=== PATIENT | female | born 1945 | race Caucasian/White ===

== ENCOUNTER 2017-10-09 10:21 | Outpatient (CLI) | payer MEDICARE, OTHER ==
--- NOTE | 2017-10-09 11:54 | XRAY Report ---
THREE VIEW BILATERAL FEET: 10/09/2017 CLINICAL INDICATION: Bilateral pain. FINDINGS: AP, lateral, oblique views of the bilateral feet demonstrate mild osteoarthritis. There is no evidence of acute fracture or dislocation. No radiopaque foreign body is seen in the soft tissues. IMPRESSION: MILD OSTEOARTHRITIS. TD: 10/09/2017 11:53
== END 2017-10-09 10:22 | disposition home or self-care (01) ==
LOC: DI 10:21
PROVIDERS: ATTEND Podiatrist
DX: M19.071 Primary osteoarthritis, right ankle and foot (principal); M19.072 Primary osteoarthritis, left ankle and foot

== ENCOUNTER 2021-12-17 15:34 | Outpatient (CLI) | payer MEDICARE, OTHER ==
--- NOTE | 2021-12-17 16:25 | XRAY Report ---
PROCEDURE: Foot 3 View LT INDICATIONS: LEFT FOOT PAIN TECHNIQUE: 3 views of the foot were acquired. COMPARISON: 10/09/2017 FINDINGS: Bones: No fractures or dislocations. No suspicious bony lesions. Diffuse osteopenia. Mild osteoart hritis. Soft tissues: No tibiotalar joint effusion. Achilles tendon appears normal. IMPRESSION: Stable findings. Diffuse osteopenia. Mild osteoarthritis. No evidence acute bony abnormality of the l eft foot. If clinical suspicion and/or symptoms persist, further assessment with repeat plain films or advanced imaging (e.g., CT, MRI, or bone scan) may be helpful for further assessment. Reviewed by: Marty Bell MD on 12/17/2021 4:24 PM PDT Approved by: Marty Bell MD on 12/17/2021 4:24 PM PDT Station ID: [id number]
== END 2021-12-17 15:35 | disposition home or self-care (01) ==
LOC: DI 15:34
PROVIDERS: ATTEND Podiatrist
DX: M19.072 Primary osteoarthritis, left ankle and foot (principal); M85.872 Other specified disorders of bone density and structure, left ankle and foot